=== PATIENT | female | born 1985 | race African-American/Black ===

== ENCOUNTER 2019-05-01 14:11 | Inpatient (IN) | payer OTHER ==
[~2019-05-01] VITALS: Ht 167.6 cm; Wt 92.5 kg
[2019-05-01] MEDS ORDERED: SODIUM CHLORIDE 0.9% 1,000 ML IV ONE (16:08)
[2019-05-01] MEDS ORDERED: ONDANSETRON HCL 4MG/2ML INJ IV STA (16:08)
[2019-05-01] MEDS ORDERED: MORPHINE SULFATE 4 MG/ML CPJ (NOT FOR IM USE) IV STA (16:08)
[2019-05-01 16:53] LABS: BASOPHILS % 0.5 % (0.0-2.0); HEMATOCRIT. 49.9 % (36.0-48.0); HEMOGLOBIN. 16.1 g/dL (12.0-16.0); LYMPHOCYTES % 7.5 % (20.0-50.0); MEAN CORPUSCULAR HEMOGLOBIN 29.3 pg (28.0-32.0); MEAN CORPUSCULAR VOLUME 90.9 fL (81.0-99.0); MEAN PLATELET VOLUME 10.1 fl (7.4-10.4); MONOCYTES % 5.5 % (2.0-8.0); NEUTROPHILS % 86.5 % (40.0-76.0); PLATELET 185 x1000/uL (130-400); RED BLOOD CELL COUNT 5.49 mill/uL (4.2-5.4)
[2019-05-01 17:00] LABS: INR 1.1; PROTHROMBIN TIME 11.7 sec (9.6-11.0)
[2019-05-01 17:01] LABS: CHLORIDE 108 mEq/L (98-107)
[2019-05-01 17:17] LABS: CLARITY URINE CLOUDY (CLEAR); COLOR URINE YELLOW (YELLOW); KETONES URINE 1+ (NEGATIVE); LEUKOCYTE ESTERASE URINE 2+ (NEGATIVE); NITRITE URINE POSITIVE (NEGATIVE); OCCULT BLOOD URINE 3+ (NEGATIVE); PH URINE 5.5 (4.5-8.0); PROTEIN URINE 1+ (NEGATIVE); SPECIFIC GRAVITY URINE 1.017 (1.005-1.030); UROBILINOGEN URINE 0.2 E.U./dL (0.2-1.0)
[2019-05-01] MEDS ORDERED: CEFTRIAXONE 1 G PREMIX 50 ML IV ONE (18:00)
[2019-05-01] MEDS ORDERED: MORPHINE SULFATE 4 MG/ML CPJ (NOT FOR IM USE) IV ONE (18:45)
[2019-05-01] MEDS ORDERED: ONDANSETRON HCL 4MG/2ML INJ IV ONE (18:45)
[2019-05-01] MEDS ORDERED: SODIUM CHLORIDE 0.9% 1000ML BAG (SEPSIS BOLUS) IV ONE (19:45)
[2019-05-01] MEDS ORDERED: IOHEXOL-300 100 ML BOTTLE ONE (22:58)
[2019-05-01] MEDS ORDERED: ACETAMINOPHEN 325MG TABLET PO PRN (23:00)
[2019-05-01] MEDS ORDERED: CLONIDINE 0.1MG TABLET PO PRN (23:00)
[2019-05-01] MEDS ORDERED: MAGNESIUM/ALUMINUM HYDROXIDE/SIMETHICONE 30ML UDC PO PRN (23:00)
[2019-05-01] MEDS ORDERED: ONDANSETRON HCL 4MG/2ML INJ IV PRN (23:00)
[2019-05-01] MEDS ORDERED: DOCUSATE SODIUM 100MG CAPSULE PO PRN (23:00)
[2019-05-01] MEDS ORDERED: LEVOFLOXACIN 500MG PREMIX 100 ML IV NR (23:33)
[2019-05-01] MEDS: MORPHINE SULFATE 2 MG/ML CPJ (NOT FOR IM USE) IV PRN (23:38)
[2019-05-02] VITALS (8 sets, daily range): BP systolic 115–150; BP diastolic 51–80
[2019-05-02] MEDS: SODIUM CHLORIDE 0.45% 1,000 ML IV SCH ×2 (02:18→21:11)
[2019-05-02 07:38] LABS: BASOPHILS % 0.4 % (0.0-2.0); EOSINOPHILS % 0.2 % (0.0-5.0); HEMATOCRIT. 33.1 % (36.0-48.0); HEMOGLOBIN. 11.2 g/dL (12.0-16.0); MEAN CORPUSCULAR HEMOGLOBIN 28.1 pg (28.0-32.0); MEAN CORPUSCULAR VOLUME 82.8 fL (81.0-99.0); MEAN PLATELET VOLUME 8.3 fl (7.4-10.4); NEUTROPHILS % 74.4 % (40.0-76.0); PLATELET 348 x1000/uL (130-400); RED CELL DISTRIBUTION WIDTH 15.4 % (11.6-14.6)
[2019-05-02] MEDS: MORPHINE SULFATE 2 MG/ML CPJ (NOT FOR IM USE) IV PRN (07:40)
[2019-05-02 07:57] LABS: CHLORIDE 106 mEq/L (98-107)
[2019-05-02] MEDS: HYDROCODONE/ACETAMINOPHEN 5/325MG TABLET PO PRN ×4 (09:03→21:55)
[2019-05-02] MEDS ORDERED: LEVOFLOXACIN 500MG PREMIX 100 ML IV SCH ×2 (20:00→21:00)
[2019-05-03] VITALS: BP 145/54
[2019-05-03] MEDS: HYDROCODONE/ACETAMINOPHEN 5/325MG TABLET PO PRN ×2 (01:48→07:52)
[2019-05-03 04:00] VITALS: BP 110/67
[2019-05-03 07:26] LABS: BASOPHILS % 0.3 % (0.0-2.0); EOSINOPHILS % 0.9 % (0.0-5.0); HEMATOCRIT. 31.4 % (36.0-48.0); HEMOGLOBIN. 10.6 g/dL (12.0-16.0); LYMPHOCYTES % 17.2 % (20.0-50.0); MEAN CORPUSCULAR HEMOGLOBIN 28.1 pg (28.0-32.0); MEAN CORPUSCULAR VOLUME 82.6 fL (81.0-99.0); MEAN PLATELET VOLUME 8.6 fl (7.4-10.4); MONOCYTES % 11.6 % (2.0-8.0); PLATELET 346 x1000/uL (130-400); RED CELL DISTRIBUTION WIDTH 15.2 % (11.6-14.6)
[2019-05-03 07:43] LABS: CHLORIDE 104 mEq/L (98-107)
[2019-05-03 08:00] VITALS: BP 138/68
[2019-05-03 12:00] VITALS: BP 133/76
[2019-05-03] MEDS ORDERED: HYDR-3281 PO (12:38)
[2019-05-03] MEDS ORDERED: LEVO500T2 MT (12:38)
[2019-05-03 14:08] VITALS: BP 138/79
== END 2019-05-03 14:31 | disposition home or self-care (01) | DRG 690 ==
LOC: ER 14:11 → 6EST 21:05 → ENRESERV 23:40
PROVIDERS: ADMIT Hospitalist; ATTEND Hospitalist
DX: N10 Acute pyelonephritis (principal); I31.8 Other specified diseases of pericardium; Z87.440 Personal history of urinary (tract) infections
CPT/HCPCS: 36415; 74177; 80053; 81003; 83605; 83735; 85025; 93970; 96365; 99285; J0696; J1956; J2270; J2405; J7030; Q9967